=== PATIENT | female | born 1965 | race Caucasian/White ===

== ENCOUNTER → 2018-07-19 | Outpatient (CLI) | payer OTHER ==
--- NOTE | 2018-07-19 15:28 | KCIC ---
MRI study of the left knee without contrast Clinical indications: Left knee joint effusion. Left knee pain after fall. Swelling and instability. TECHNIQUE: Noncontrast MRI sequences of the left knee were performed in all 3 planes. FINDINGS: There is diffuse thickening and increased signal of the anterior cruciate ligament which may be seen with mucinous degeneration of the ligament. Certainly, a grade 1 ligament sprain is possible. No tear is evident. Posterior cruciate ligament is intact. There is a moderate size bone contusion of the inferior pole of the patella. No fracture line is seen here. The medial and lateral retinacular ligaments are intact. There is mild contusion of the upper aspect of the patellar tendon. The patellar tendon is intact. The quadriceps tendon is intact. There is edema of Hoffa's fat pad. The patella is normally aligned otherwise. There is severe chondromalacia patellae with thinning of the articular cartilage of the medial patellar facet and apex. The trochlear articular cartilage is unremarkable. Mild chondromalacia and thinning of the articular cartilage of the medial femoral condyle is seen. There is mild degenerative spurring of the lateral and lateral tibiofemoral joint compartments. No other focal osteochondral abnormality is evident. No articular surface tear of the medial or lateral meniscus is seen. The medial collateral ligament is intact and no meniscocapsular separation is seen. The lateral collateral ligament complex and iliotibial band and popliteus tendon are intact. No posterior lateral corner injury is seen. Small knee joint effusion is seen. No loose osteochondral body is evident. No Anaya's cyst is seen. No muscle edema is evident. IMPRESSION: Moderate size bone contusion of the inferior pole of the patella. No fracture line is evident. There is associated edema of Hoffa's fat pad and there is a small contusion of the upper aspect of the patellar tendon. No tendon tear is seen. Severe chondromalacia with thinning of the articular cartilage of the medial patellar facet and apex. No meniscal tear is seen. Mild chondromalacia and thinning of the articular cartilage of the medial femoral condyle. Mucinous degeneration of the anterior cruciate ligament. Certainly, the increased signal could be secondary to a grade 1 ligament sprain of the ACL. However, no tear of the ACL is seen. Electronically signed by: Ky Cooley MD (07/19/2018 3:25 PM) [id number]
== END | disposition home or self-care (01) ==
LOC: KCIC MRI 12:42
PROVIDERS: ATTEND Orthopaedic Surgery
DX: S80.02XA Contusion of left knee, initial encounter (principal); M17.12 Unilateral primary osteoarthritis, left knee; M22.42 Chondromalacia patellae, left knee; M79.4 Hypertrophy of (infrapatellar) fat pad; M25.462 Effusion, left knee; R60.0 Localized edema; X58.XXXA Exposure to other specified factors, initial encounter; Y93.89 Activity, other specified; Y92.89 Other specified places as the place of occurrence of the external cause; Y99.8 Other external cause status
CPT/HCPCS: 73721